=== PATIENT | male | born 1950 | race Caucasian/White ===

== ENCOUNTER 2016-06-02 18:29 | Emergency (ER) | payer MEDICARE ==
--- NOTE | 2016-06-02 19:00 | ED ---
Abdominal Pain HPI <Kee Renae - Last Filed: 06/02/16 22:59> - General Source: patient, RN notes reviewed Mode of arrival: ambulatory Limitations: no limitations <Josefa Gallagher - Last Filed: 06/03/16 03:44> - General Chief Complaint: Abdominal Pain Stated Complaint: RT FLANK PAIN Time Seen by Provider: 06/02/16 18:43 - History of Present Illness Initial Comments: Patient is a 66-year-old male presents to the emergency room for evaluation of right flank and right lower quadrant pain. Patient states been having on and off pain for the past month. Patient states been getting worse and more constant throughout the day today. Patient states having 8 out of 10 constant throbbing/aching pain. Patient states the pain is worse with movement. Patient states the pain is not any worse after eating foods or spicy foods. Patient denies any past surgical history. Patient states she hasn't seen a primary care provider in 5 years. Patient states he's not on any medications. Patient denies any significant past medical history. Patient denies any chest pain currently. Patient denies any shortness of breath. Patient denies any pain or burning during urination, trouble urinating or blood in urine. Patient states he does have a history of kidney stones. Patient denies fevers or chills. Patient denies nausea or vomiting. Patient denies headache or dizziness. (Josefa Gallagher) - Related Data Previous Rx's Medication Instructions Recorded HYDROcodone/APAP 5-325MG [[place] 1 tab PO Q6HR PRN #12 tab 06/02/16 5-325] Ibuprofen [Motrin] 800 mg PO Q6HR PRN #20 tab 06/02/16 Ondansetron Odt [Zofran Odt] 4 mg PO Q8HR PRN #12 tab 06/02/16 Tamsulosin HCl [Flomax] 0.4 mg PO DAILY #10 cap.er.24h 06/02/16 Allergies Allergy/AdvReac Type Severity Reaction Status Date / Time No Known Allergies Allergy Verified 06/02/16 19:06 Review of Systems ROS Other: All systems not noted in ROS Statement are negative. <Kee Renae - Last Filed: 06/02/16 22:59> ROS Other: All systems not noted in ROS Statement are negative. <Josefa Gallagher - Last Filed: 06/03/16 03:44> ROS Statement: Those systems with pertinent positive or pertinent negative responses have been documented in the HPI. Past Medical History Past Medical History: No Reported History History of Any Multi-Drug Resistant Organisms: None Reported Past Surgical History: Orthopedic Surgery Past Psychological History: No Psychological Hx Reported Smoking Status: Never smoker Past Alcohol Use History: None Reported Past Drug Use History: None Reported <Josefa Gallagher - Last Filed: 06/03/16 03:44> General Exam <Kee Renae - Last Filed: 06/02/16 22:59> Limitations: no limitations General appearance: alert, in no apparent distress Head exam: Present: atraumatic, normocephalic, normal inspection Eye exam: Present: normal appearance ENT exam: Present: normal exam Neck exam: Present: normal inspection Respiratory exam: Present: normal lung sounds bilaterally. Absent: respiratory distress Cardiovascular Exam: Present: regular rate, normal rhythm, normal heart sounds GI/Abdominal exam: Present: soft, normal bowel sounds. Absent: distended, tenderness, guarding, rebound, rigid Extremities exam: Present: normal inspection Back exam: Present: normal inspection Neurological exam: Present: alert, oriented X3, CN II-XII intact, normal gait Psychiatric exam: Present: normal affect, normal mood Skin exam: Present: warm, dry, intact, normal color. Absent: rash <Josefa Gallagher - Last Filed: 06/03/16 03:44> - General Exam Comments Initial Comments: Sitting in exam room in no acute distress. (Josefa Gallagher) Medical Decision Making - Lab Data Result diagrams: 06/02/16 19:53 06/02/16 19:53 <Kee Renae - Last Filed: 06/02/16 22:59> - Lab Data Result diagrams: 06/02/16 19:53 06/02/16 19:53 - Radiology Data Radiology results: report reviewed, image reviewed <Josefa Gallagher - Last Filed: 06/03/16 03:44> - Medical Decision Making Medical decision making. I reviewed the patient's labs SHOW normal limits. His pain is on again off again for a day. He has had kidney stones before. We did discuss renal colic. The patient also has been advised follow-up with a family physician for his prostate. The patient will be placed on Flomax and and medicine for nausea and analgesic for pain. I did discuss with him the findings of the CAT scan showing some mild inflammation of the mesentery. Nonspecific. Deep palpation of the abdomen is negative. Negative Bates sign. Deep palpation of the right flank along the rib cage does elicit discomfort. Possibility of mild costochondritis and/or early shingles was discussed. They will watch for signs of rash. Advised return emergency room as needed. Dr. Renae (Kee Renae) Patient is a 66-year-old male presented emergency room for evaluation of right flank and right upper quadrant pain. Labs show no significant findings. Case discussed with Dr. Renae who also evaluated patient. Patient will be treated for renal colic. Advised patient to follow-up with his primary care provider and urologist. Return parameters discussed. (Josefa Gallagher) - Lab Data Lab Results 06/02/16 06/02/16 06/02/16 Range/Units 19:53 19:53 19:53 WBC 8.1 (3.8-10.6) k/uL RBC 4.87 (4.30-5.90) m/uL Hgb 15.7 (13.0-17.5) gm/dL Hct 45.4 (39.0-53.0) % MCV 93.2 (80.0-100.0) fL MCH 32.2 (25.0-35.0) pg MCHC 34.6 (31.0-37.0) g/dL RDW 13.2 (11.5-15.5) % Plt Count 185 (150-450) k/uL Neutrophils % 70 % Lymphocytes % 20 % Monocytes % 5 % Eosinophils % 3 % Basophils % 1 % Neutrophils # 5.6 (1.3-7.7) k/uL Lymphocytes # 1.6 (1.0-4.8) k/uL Monocytes # 0.4 (0-1.0) k/uL Eosinophils # 0.2 (0-0.7) k/uL Basophils # 0.1 (0-0.2) k/uL PT (9.0-12.0) sec INR (<1.1) APTT (22.0-30.0) sec Sodium 139 (137-145) mmol/L Potassium 4.1 (3.5-5.1) mmol/L Chloride 104 (98-107) mmol/L Carbon Dioxide 24 (22-30) mmol/L Anion Gap 11 mmol/L BUN 12 (9-20) mg/dL Creatinine 1.05 (0.66-1.25) mg/dL Est GFR (MDRD) Af Amer >60 (>60 ml/min/1.73 sqM) Est GFR (MDRD) Non-Af >60 (>60 ml/min/1.73 sqM) Glucose 93 (74-99) mg/dL Calcium 9.0 (8.4-10.2) mg/dL Magnesium 1.9 (1.6-2.3) mg/dL Total Bilirubin 0.8 (0.2-1.3) mg/dL AST 25 (17-59) U/L ALT 47 (21-72) U/L Alkaline Phosphatase 67 (38-126) U/L Total Creatine Kinase 82 (55-170) U/L CK-MB (CK-2) 0.9 (0.0-2.4) ng/mL CK-MB (CK-2) Rel Index 1.1 Troponin I <0.012 (0.000-0.034) ng/mL NT-Pro-B Natriuret Pep pg/mL Total Protein 7.1 (6.3-8.2) g/dL Albumin 4.3 (3.5-5.0) g/dL Amylase 70 (30-110) U/L Lipase 97 (23-300) U/L Urine Color Urine Appearance (Clear) Urine pH (5.0-8.0) Ur Specific [place] (1.001-1.035) Urine Protein (Negative) Urine Glucose (UA) (Negative) Urine Ketones (Negative) Urine Blood (Negative) Urine Nitrate (Negative) Urine Bilirubin (Negative) Urine Urobilinogen (<2.0) mg/dL Ur Leukocyte Esterase (Negative) 06/02/16 06/02/16 06/02/16 Range/Units 19:53 19:53 20:20 WBC (3.8-10.6) k/uL RBC (4.30-5.90) m/uL Hgb (13.0-17.5) gm/dL Hct (39.0-53.0) % MCV (80.0-100.0) fL MCH (25.0-35.0) pg MCHC (31.0-37.0) g/dL RDW (11.5-15.5) % Plt Count (150-450) k/uL Neutrophils % % Lymphocytes % % Monocytes % % Eosinophils % % Basophils % % Neutrophils # (1.3-7.7) k/uL Lymphocytes # (1.0-4.8) k/uL Monocytes # (0-1.0) k/uL Eosinophils # (0-0.7) k/uL Basophils # (0-0.2) k/uL PT 10.7 (9.0-12.0) sec INR 1.1 (<1.1) APTT 24.5 (22.0-30.0) sec Sodium (137-145) mmol/L Potassium (3.5-5.1) mmol/L Chloride (98-107) mmol/L Carbon Dioxide (22-30) mmol/L Anion Gap mmol/L BUN (9-20) mg/dL Creatinine (0.66-1.25) mg/dL Est GFR (MDRD) Af Amer (>60 ml/min/1.73 sqM) Est GFR (MDRD) Non-Af (>60 ml/min/1.73 sqM) Glucose (74-99) mg/dL Calcium (8.4-10.2) mg/dL Magnesium (1.6-2.3) mg/dL Total Bilirubin (0.2-1.3) mg/dL AST (17-59) U/L ALT (21-72) U/L Alkaline Phosphatase (38-126) U/L Total Creatine Kinase (55-170) U/L CK-MB (CK-2) (0.0-2.4) ng/mL CK-MB (CK-2) Rel Index Troponin I (0.000-0.034) ng/mL NT-Pro-B Natriuret Pep 49 pg/mL Total Protein (6.3-8.2) g/dL Albumin (3.5-5.0) g/dL Amylase (30-110) U/L Lipase (23-300) U/L Urine Color Yellow Urine Appearance Clear (Clear) Urine pH 6.0 (5.0-8.0) Ur Specific [place] 1.013 (1.001-1.035) Urine Protein Negative (Negative) Urine Glucose (UA) Negative (Negative) Urine Ketones Negative (Negative) Urine Blood Negative (Negative) Urine Nitrate Negative (Negative) Urine Bilirubin Negative (Negative) Urine Urobilinogen <2.0 (<2.0) mg/dL Ur Leukocyte Esterase Negative (Negative) 06/02/16 23:08 Normal sinus rhythm, ventricular rate 76 bpm, WV interval 154 ms, QRS duration 84 ms, QT/QTC 378/425 ms, no ST elevations (Josefa Gallagher) Disposition <Kee Renae - Last Filed: 06/02/16 22:59> Time of Disposition: 23:01 <Josefa Gallagher - Last Filed: 06/03/16 03:44> Clinical Impression: Right flank pain Disposition: HOME SELF-CARE Condition: Good Instructions: Kidney Stones (ED), Flank Pain (ED) Additional Instructions: Take Flomax as directed. Take Zofran as needed for nausea. Take ibuprofen as needed for pain. Take [place] as needed for severe pain. Please follow up with urologist for further evaluation. If any new symptom arises or symptoms worsen , return to ER as soon as possible. Prescriptions: HYDROcodone/APAP 5-325MG [[place] 5-325] 1 tab PO Q6HR PRN #12 tab PRN Reason: Pain Ibuprofen [Motrin] 800 mg PO Q6HR PRN #20 tab PRN Reason: Pain Ondansetron Odt [Zofran Odt] 4 mg PO Q8HR PRN #12 tab PRN Reason: Nausea Tamsulosin HCl [Flomax] 0.4 mg PO DAILY #10 cap.er.24h Referrals: Eamon Johnston MD [STAFF PHYSICIAN] - 1-2 days
[2016-06-02 20:04] LABS: Basophils # (A) 0.1 k/uL (0-0.2); Basophils % (A) 1 %; CHCM 34.5; Eosinophils # (A) 0.2 k/uL (0-0.7); Eosinophils % (A) 3 %; HCT 45.4 % (39.0-53.0); HDW 2.54; HGB 15.7 gm/dL (13.0-17.5); Luc # (Auto) 0.16; Luc % (Auto) 2; Lymphocytes # (A) 1.6 k/uL (1.0-4.8); Lymphocytes % (A) 20 %; MCH 32.2 pg (25.0-35.0); MCHC 34.6 g/dL (31.0-37.0); MCV 93.2 fL (80.0-100.0); Mean Platelet Volume 7.5; Monocytes # (A) 0.4 k/uL (0-1.0); Monocytes % (A) 5 %; Neutrophils # (A) 5.6 k/uL (1.3-7.7); Neutrophils % (A) 70 %; RBC 4.87 m/uL (4.30-5.90); RDW 13.2 % (11.5-15.5); WBC 8.1 k/uL (3.8-10.6); WBC (Perox) 7.69
--- NOTE | 2016-06-02 20:08 | XR ---
EXAMINATION TYPE: XR chest 2V DATE OF EXAM: 06/02/2016 8:01 PM COMPARISON: NONE INDICATION: Chest pain TECHNIQUE: Single frontal view of the chest is obtained. FINDINGS: The heart size is normal. The pulmonary vasculature is normal. The lungs are clear. IMPRESSION: 1. No acute pulmonary process.
[2016-06-02 20:12] LABS: ALT 47 U/L (21-72); AST 25 U/L (17-59); Alkaline Phosphatase 67 U/L (38-126); Amylase 70 U/L (30-110); Anion Gap 11 mmol/L; Blood Urea Nitrogen 12 mg/dL (9-20); Carbon Dioxide 24 mmol/L (22-30); Chloride 104 mmol/L (98-107); Glucose 93 mg/dL (74-99); INR 1.1 (<1.1); Magnesium 1.9 mg/dL (1.6-2.3); Non-African American GFR(MDRD) >60 (>60 ml/min/1.73 sqM); Partial Thromboplastin Time 24.5 sec (22.0-30.0); Potassium 4.1 mmol/L (3.5-5.1); Prothrombin Time 10.7 sec (9.0-12.0); Sodium 139 mmol/L (137-145); Total Bilirubin 0.8 mg/dL (0.2-1.3); Total Protein 7.1 g/dL (6.3-8.2)
--- NOTE | 2016-06-02 20:16 | XR ---
EXAMINATION TYPE: XR KUB DATE OF EXAM: 06/02/2016 8:01 PM COMPARISON: NONE INDICATION: Pain TECHNIQUE: Single view abdomen FINDINGS: There is a normal bowel gas pattern. Psoas margins are normal. No organomegaly is present. No suspicious calcifications are identified. IMPRESSION: 1. Unremarkable Abdomen
[2016-06-02 20:23] LABS: Creatine Kinase 82 U/L (55-170)
[2016-06-02 20:28] LABS: Appearance,Urine Clear (Clear); Bilirubin,Urine Negative (Negative); Glucose,Urine (UA) Negative (Negative); Ketones,Urine Negative (Negative); Leukocyte Esterase,Urine Negative (Negative); Nitrite,Urine Negative (Negative); Protein,Urine Negative (Negative); Specific Gravity,Urine 1.013 (1.001-1.035); UA Billing (MACRO vs. MICRO) CHEM; Urobilinogen,Urine <2.0 mg/dL (<2.0)
[2016-06-02] MEDS ORDERED: HYDROmorphone 1 MG/ML 1 ML SYRINGE IVP STA (20:29)
[2016-06-02 20:36] LABS: Creatine Kinase MB 0.9 ng/mL (0.0-2.4); Troponin I <0.012 ng/mL (0.000-0.034)
--- NOTE | 2016-06-02 21:42 | CT ---
EXAMINATION TYPE: CT abdomen pelvis wo con DATE OF EXAM: 06/02/2016 9:33 PM COMPARISON: NONE INDICATION: Right Upper Quadrant pain DLP: 1769 mGycm, Automated exposure control for dose reduction was used. CONTRAST: None Study performed without Oral Contrast TECHNIQUE: Axial images were obtained from above the diaphragm to the pubic rami in the axial plane a t 5 mm thick sections. Reconstructed images are reviewed on the computer in the coronal plane. FINDINGS: Limited CT sections are obtained the lung bases. The lung bases are clear. Some coronary artery keven cification is present. CT ABDOMEN: Liver: Normal Spleen: Normal Pancreas: Some fatty infiltration of the pancreas is present. Anterior to the pancreas there is some extremely subtle inflammatory-type increased density within th e mesentery. No enlarged adenopathy is evident. No suspicious masses evident. This is not direct comm unication with the pancreas. Mild inflammatory changes not entirely excluded this level. This area is nonspecific.This is the contralateral side patient's reported pain. Adrenal glands: The adrenal glands are normal. Gallbladder: Normal Kidneys: No masses are evident. No hydronephrosis is present. There is a 2.0 cm cyst measuring 4 Ho [place]field units on the posterior lateral right mid kidney. No renal stones are identified. Aorta: Vascular calcification is within the aorta. Inferior vena cava: Normal. CT PELVIS: Loops of bowel within the abdomen and pelvis are normal. Study is performed without oral contrast limiting the evaluation. Appendix: Not identified Urinary bladder: Normal. Genitourinary structures: Prostate contains calcification. Osseous structures: No suspicious lytic or sclerotic lesions. IMPRESSIONS: 1. No suspicious acute changes. Minimal increased density is within the mesentery anterior to the ta il of pancreas which is nonspecific. Some subtle inflammatory change could be considered.
[2016-06-02] MEDS ORDERED: ONDANSETRON 4 MG/2 ML VIAL IVP STA (22:40)
[2016-06-02] MEDS ORDERED: KETOROLAC 30 MG/ML 1 ML VIAL IVP STA (23:06)
[2016-06-02 23:33] VITALS: BP 157/87; PULSE 63; RESP 20; TEMP 97.8
== END 2016-06-02 23:35 | disposition home or self-care (01) ==
LOC: EC 18:29
DX: R10.9 Unspecified abdominal pain (principal); R10.11 Right upper quadrant pain; Z79.899 Other long term (current) drug therapy; Z87.442 Personal history of urinary calculi
CPT/HCPCS: 36415; 93005; 83880; 80053; 82150; 82550; 82553; 83690; 83735; 84484; 85025; 85610; 85730; 81003; 71020; 74000; 74176; 99284; 96374; 96375; J2405; J1885; J1170

== ENCOUNTER 2017-10-24 07:36 | Emergency (ER) | payer MEDICARE ==
[2017-10-24] MEDS ORDERED: METOCLOPRAMIDE 5 MG/ML 2 ML VIAL IVP STA (08:07)
[2017-10-24] MEDS ORDERED: MECLIZINE 12.5 MG TAB PO STA (08:07)
--- NOTE | 2017-10-24 08:09 | ED ---
General Adult HPI - General Chief complaint: Dizziness Stated complaint: Dizziness Time Seen by Provider: 10/24/17 07:44 Source: patient, RN notes reviewed Mode of arrival: ambulatory Limitations: no limitations - History of Present Illness Initial comments: Patient is a pleasant 67-year-old male presenting to the emergency Department with complaints of dizziness. Symptoms have been present for just over 48 hours. Patient has spinning type sensation. Symptoms have been waxing and waning. At times symptoms are positional. No headache. No confusion. No weakness. No speech problems. No loss of sensation. No history of similar symptoms previously. - Related Data Home Medications Medication Instructions Recorded Confirmed Furosemide [Lasix] 40 mg PO DAILY 10/24/17 10/24/17 Losartan Potassium 100 mg PO DAILY 10/24/17 10/24/17 Potassium Chloride [Klor-Con 10] 10 meq PO DAILY 10/24/17 10/24/17 Allergies Allergy/AdvReac Type Severity Reaction Status Date / Time iodine Allergy Rash/Hives Verified 10/24/17 08:15 Review of Systems ROS Statement: Those systems with pertinent positive or pertinent negative responses have been documented in the HPI. ROS Other: All systems not noted in ROS Statement are negative. Constitutional: Denies: fever Eyes: Denies: eye pain ENT: Denies: ear pain Respiratory: Denies: cough Cardiovascular: Denies: chest pain Endocrine: Denies: fatigue Gastrointestinal: Reports: nausea. Denies: abdominal pain Genitourinary: Denies: dysuria Musculoskeletal: Denies: back pain Skin: Denies: rash Neurological: Reports: vertigo. Denies: headache, weakness, numbness, paresthesias, confusion Past Medical History Past Medical History: Hypertension History of Any Multi-Drug Resistant Organisms: None Reported Past Surgical History: Orthopedic Surgery Past Psychological History: No Psychological Hx Reported Smoking Status: Never smoker Past Alcohol Use History: None Reported Past Drug Use History: None Reported General Exam Limitations: no limitations General appearance: alert, in no apparent distress Head exam: Present: atraumatic Eye exam: Present: normal appearance, PERRL, EOMI. Absent: nystagmus ENT exam: Present: normal oropharynx Neck exam: Present: normal inspection Respiratory exam: Present: normal lung sounds bilaterally Cardiovascular Exam: Present: regular rate, normal rhythm GI/Abdominal exam: Present: soft. Absent: tenderness Extremities exam: Present: normal inspection Neurological exam: Present: alert, oriented X3, CN II-XII intact. Absent: motor sensory deficit Expanded Neurological exam: Present: protecting the airway Speech: Present: fluid speech Cranial nerves: EOM's Intact: Normal, Facial Sensation: Normal Cerebellar function: Finger to Nose: Normal Sensory exam: Upper Extremity Light Touch: Normal, Lower Extremity Light Touch: Normal Motor strength exam: RUE: 5, LUE: 5, RLE: 5, LLE: 5 Eye Response: (4) open spontaneously Motor Response: (6) obeys commands Verbal Response: (5) oriented Psychiatric exam: Present: normal affect, normal mood Skin exam: Present: normal color Course Vital Signs 10/24/17 10/24/17 10/24/17 07:36 09:21 12:08 Temperature 98.6 F Pulse Rate 75 69 70 Pulse Rate [ Sitting] Pulse Rate [ Standing] Pulse Rate [ Supine] Respiratory 18 17 16 Rate Blood Pressure 160/86 154/86 139/79 Blood Pressure [Sitting] Blood Pressure [Standing] Blood Pressure [Supine] O2 Sat by Pulse 97 98 100 Oximetry 10/24/17 10/24/17 12:09 13:34 Temperature 98.4 F Pulse Rate 67 Pulse Rate [ 68 Sitting] Pulse Rate [ 72 Standing] Pulse Rate [ 73 Supine] Respiratory 18 Rate Blood Pressure 136/66 Blood Pressure 167/79 [Sitting] Blood Pressure 139/76 [Standing] Blood Pressure 141/70 [Supine] O2 Sat by Pulse 96 Oximetry - Reevaluation(s) Reevaluation #1: 10/24/17 11:22 Patient reevaluated and somewhat improved however still having intermittent symptoms. EKG Findings - EKG Comments: EKG Findings:: Normal sinus rhythm 67. AR 162. QRS 76. QT 396. QTc 418. Normal axis. Normal QRS. No acute ST change. Medical Decision Making - Medical Decision Making Patient reevaluated and feels much better following fluid bolus. Patient able get up and walk around without difficulty. Patient requesting discharge home. Patient and family updated on results and need for follow-up. - Lab Data Result diagrams: 10/24/17 09:03 10/24/17 09:03 Lab Results 10/24/17 10/24/17 Range/Units 09:03 09:03 WBC 6.0 (3.8-10.6) k/uL RBC 5.04 (4.30-5.90) m/uL Hgb 15.5 (13.0-17.5) gm/dL Hct 46.9 (39.0-53.0) % MCV 93.1 (80.0-100.0) fL MCH 30.8 (25.0-35.0) pg MCHC 33.1 (31.0-37.0) g/dL RDW 14.1 (11.5-15.5) % Plt Count 212 (150-450) k/uL Neutrophils % 70 % Lymphocytes % 19 % Monocytes % 6 % Eosinophils % 3 % Basophils % 1 % Neutrophils # 4.2 (1.3-7.7) k/uL Lymphocytes # 1.1 (1.0-4.8) k/uL Monocytes # 0.3 (0-1.0) k/uL Eosinophils # 0.2 (0-0.7) k/uL Basophils # 0.0 (0-0.2) k/uL Sodium 140 (137-145) mmol/L Potassium 4.9 (3.5-5.1) mmol/L Chloride 107 (98-107) mmol/L Carbon Dioxide 22 (22-30) mmol/L Anion Gap 11 mmol/L BUN 29 H (9-20) mg/dL Creatinine 1.07 (0.66-1.25) mg/dL Est GFR (CKD-EPI)AfAm 83 (>60 ml/min/1.73 sqM) Est GFR (CKD-EPI)NonAf 72 (>60 ml/min/1.73 sqM) Glucose 114 H (74-99) mg/dL Calcium 9.4 (8.4-10.2) mg/dL Total Bilirubin 0.4 (0.2-1.3) mg/dL AST 21 (17-59) U/L ALT 39 (21-72) U/L Alkaline Phosphatase 67 (38-126) U/L Total Protein 7.0 (6.3-8.2) g/dL Albumin 4.4 (3.5-5.0) g/dL - Radiology Data Radiology results: image reviewed (Computed tomography scan of the brain shows no acute process) Disposition Clinical Impression: Orthostatic hypotension, Vertigo Disposition: HOME SELF-CARE Condition: Stable Instructions: Dizziness (ED) Additional Instructions: [id number] Antivert as needed. Please return for increased dizziness, unable to walk, off balance, confusion or weakness, worsening symptoms or other concerns Is patient prescribed a controlled substance at d/c from ED?: No Referrals: Alice Shelton MD [Primary Care Provider] - 1-2 days Cookie Barros MD [STAFF PHYSICIAN] - 1-2 days Time of Disposition: 14:13
[2017-10-24 09:21] LABS: Basophils % (A) 1 %; Eosinophils # (A) 0.2 k/uL (0-0.7); Eosinophils % (A) 3 %; HCT 46.9 % (39.0-53.0); HGB 15.5 gm/dL (13.0-17.5); Lymphocytes # (A) 1.1 k/uL (1.0-4.8); Lymphocytes % (A) 19 %; MCH 30.8 pg (25.0-35.0); MCHC 33.1 g/dL (31.0-37.0); MCV 93.1 fL (80.0-100.0); Monocytes # (A) 0.3 k/uL (0-1.0); Monocytes % (A) 6 %; Neutrophils # (A) 4.2 k/uL (1.3-7.7); Neutrophils % (A) 70 %; Platelet Count 212 k/uL (150-450); RBC 5.04 m/uL (4.30-5.90); RDW 14.1 % (11.5-15.5)
[2017-10-24 09:31] LABS: Albumin 4.4 g/dL (3.5-5.0); Calcium 9.4 mg/dL (8.4-10.2); Potassium 4.9 mmol/L (3.5-5.1); Total Bilirubin 0.4 mg/dL (0.2-1.3)
--- NOTE | 2017-10-24 10:31 | CT ---
EXAMINATION TYPE: CT brain wo con DATE OF EXAM: 10/24/2017 COMPARISON: None HISTORY: Severe dizziness CT DLP: 1121 mGycm Automated exposure control for dose reduction was used. TECHNIQUE: CT scan of the head is performed without contrast. FINDINGS: There is no acute intracranial hemorrhage or midline shift identified. There is symmetric ventricular and sulcal prominence consistent with mild age-related cerebral atrophy. No suspicious extra axial fluid collection is seen. Osseous calvarium is intact. There is a mucosal retention cyst partially visualized within the posterior right maxillary sinus measuring 1.0 cm. Remaining paranasa l sinuses are well aerated. Mastoid air cells are also well aerated. Atherosclerosis is seen of the i ntracranial vasculature. The globes are intact. IMPRESSION: No acute intracranial process.
[2017-10-24] MEDS ORDERED: SCOPOLAMINE 1.5MG/72HR PATCH TRANSDERM STA (11:20)
[2017-10-24] MEDS ORDERED: DIAZEPAM 5 MG/ML 2 ML INJ IVP STA (11:20)
[2017-10-24] MEDS ORDERED: SODIUM CHLORIDE 0.9% 1,000 ML IV STA (12:09)
[2017-10-24 13:35] VITALS: RESP 18; TEMP 98.4
[2017-10-24 14:31] VITALS: BP 173/74; PULSE 71
== END 2017-10-24 14:31 | disposition home or self-care (01) ==
LOC: EC 07:36
DX: I95.1 Orthostatic hypotension (principal); I10 Essential (primary) hypertension; Z79.899 Other long term (current) drug therapy; Z91.048 Other nonmedicinal substance allergy status
CPT/HCPCS: 36415; 93005; 80053; 85025; 70450; 99284; 96374; 96375; 96361; J2765; J3360

== ENCOUNTER 2020-11-21 13:30 | Inpatient (IN) | payer MEDICARE ==
--- NOTE | 2020-11-21 14:00 | ED ---
General Adult HPI - General Chief complaint: Shortness of Breath Stated complaint: abd pain Time Seen by Provider: 11/21/20 13:59 Source: patient Mode of arrival: ambulatory Limitations: no limitations - History of Present Illness Initial comments: Patient presents to the ED with his son-in-law for evaluation. Patient states that he is concerned that he may have Covid. Patient states that for the past 9 days, he has had symptoms of a mild headache, a mild cough, mild dyspnea, intermittent crampy abdominal pain and nausea at times. Patient denies having any abdominal pain, headache or any pain at all currently. Patient states that he did receive the [employer] Covid vaccine well over 2 weeks ago. Patient denies any known sick contact or Covid exposure. Patient denies fever or chills, trauma or injury, sudden onset of headache, LOC, neck pain or stiffness, focal numbness/weakness/neuro deficit, visual changes, speech difficulty, chest pain or pressure, hemoptysis, palpitations, dizziness, vomiting or diarrhea, constipation, bloody or melanotic stool, dysuria or urinary symptoms, leg or calf swelling or pain, or any other symptoms or complaints. - Related Data Home Medications Medication Instructions Recorded Confirmed Furosemide [Lasix] 40 mg PO DAILY PRN 10/24/17 11/21/20 Potassium Chloride [Klor-Con 10] 10 meq PO DAILY PRN 10/24/17 11/21/20 metOLazone [Zaroxolyn] 5 mg PO DAILY PRN 11/21/20 11/21/20 Allergies Allergy/AdvReac Type Severity Reaction Status Date / Time iodine Allergy Rash/Hives Verified 11/21/20 15:54 Review of Systems ROS Statement: Those systems with pertinent positive or pertinent negative responses have been documented in the HPI. ROS Other: All systems not noted in ROS Statement are negative. Past Medical History Past Medical History: Hypertension History of Any Multi-Drug Resistant Organisms: None Reported Past Surgical History: Orthopedic Surgery Past Psychological History: No Psychological Hx Reported Smoking Status: Never smoker Past Alcohol Use History: None Reported Past Drug Use History: None Reported General Exam Limitations: no limitations General appearance: alert, in no apparent distress Head exam: Present: atraumatic, normocephalic Eye exam: Present: normal appearance, EOMI ENT exam: Present: normal oropharynx, mucous membranes moist Neck exam: Present: other (Trachea is in midline). Absent: tenderness, meningismus Respiratory exam: Present: normal lung sounds bilaterally. Absent: respiratory distress, wheezes, rales, rhonchi, stridor Cardiovascular Exam: Present: regular rate, normal rhythm, normal heart sounds, other (Normal radial pulses bilaterally) GI/Abdominal exam: Present: soft. Absent: distended, tenderness, guarding Extremities exam: Present: other (Negative Homans sign bilaterally). Absent: tenderness, pedal edema, calf tenderness Neurological exam: Present: alert, oriented X3, CN II-XII intact. Absent: motor sensory deficit Psychiatric exam: Present: normal affect, normal mood Skin exam: Present: warm, dry, intact, normal color Course Vital Signs 11/21/20 11/21/20 11/21/20 13:38 14:43 15:38 Temperature 97.6 F Pulse Rate 87 76 84 Respiratory 18 18 18 Rate Blood Pressure 144/98 130/82 147/95 O2 Sat by Pulse 93 L 92 L 93 L Oximetry 11/21/20 16:48 Temperature Pulse Rate Respiratory 18 Rate Blood Pressure O2 Sat by Pulse Oximetry - Reevaluation(s) Reevaluation #1: 11/21/20 17:19 Case, H&P, test results and ED management were discussed with Dr. Mireles. He accepts hospital admission. He has no further recommendations at this time. 11/21/20 17:22 Patient denies development of any new symptoms while in the ED. Patient remains alert and breathing comfortably. Patient and daughter are aware the patient's test results, and patient agrees with hospital admission at this time. EKG Findings - EKG Comments: EKG Findings:: Normal sinus rhythm, ventricular rate of 77 bpm, no ectopy, normal ID and QRS intervals, prolonged QTc interval of 520 ms, leftward axis, moderate voltage criteria for LVH, nonspecific ST abnormality Medical Decision Making - Medical Decision Making Patient's labs are pertinent for a low potassium level of 2.4. Patient's Covid test is negative. Patient has been repleted with oral and IV potassium in the ED. Will admit the patient to the hospital for potassium monitoring and cardiac monitoring. Dr. Mireles has accepted hospital admission. - Lab Data Result diagrams: 11/21/20 14:38 11/21/20 14:38 Lab Results 11/21/20 11/21/2021 Range/Units 14:38 14:38 14:38 WBC 8.2 (3.8-10.6) k/uL RBC 5.36 (4.30-5.90) m/uL Hgb 17.2 (13.0-17.5) gm/dL Hct 49.3 (39.0-53.0) % MCV 91.9 (80.0-100.0) fL MCH 32.1 (25.0-35.0) pg MCHC 35.0 (31.0-37.0) g/dL RDW 14.4 (11.5-15.5) % Plt Count 246 (150-450) k/uL MPV 7.9 Neutrophils % 69 % Lymphocytes % 20 % Monocytes % 6 % Eosinophils % 1 % Basophils % 1 % Neutrophils # 5.6 (1.3-7.7) k/uL Lymphocytes # 1.7 (1.0-4.8) k/uL Monocytes # 0.5 (0-1.0) k/uL Eosinophils # 0.1 (0-0.7) k/uL Basophils # 0.1 (0-0.2) k/uL Poikilocytosis Slight PT 10.4 (9.0-12.0) sec INR 1.0 (<1.2) APTT 24.6 (22.0-30.0) sec Sodium 129 L (137-145) mmol/L Potassium 2.4 L* (3.5-5.1) mmol/L Chloride 81 L (98-107) mmol/L Carbon Dioxide 34 H (22-30) mmol/L Anion Gap 14 mmol/L BUN 30 H (9-20) mg/dL Creatinine 1.35 H (0.66-1.25) mg/dL Est GFR (CKD-EPI)AfAm 61 (>60 ml/min/1.73 sqM) Est GFR (CKD-EPI)NonAf 52 (>60 ml/min/1.73 sqM) Glucose 143 H (74-99) mg/dL Calcium 9.3 (8.4-10.2) mg/dL Magnesium 2.0 (1.6-2.3) mg/dL Total Bilirubin 0.9 (0.2-1.3) mg/dL AST 35 (17-59) U/L ALT 33 (4-49) U/L Alkaline Phosphatase 88 (38-126) U/L Troponin I (0.000-0.034) ng/mL NT-Pro-B Natriuret Pep pg/mL Total Protein 7.2 (6.3-8.2) g/dL Albumin 4.3 (3.5-5.0) g/dL Lipase 271 (23-300) U/L Urine Color Urine Appearance (Clear) Urine pH (5.0-8.0) Ur Specific [place] (1.001-1.035) Urine Protein (Negative) Urine Glucose (UA) (Negative) Urine Ketones (Negative) Urine Blood (Negative) Urine Nitrite (Negative) Urine Bilirubin (Negative) Urine Urobilinogen (<2.0) mg/dL Ur Leukocyte Esterase (Negative) Coronavirus (PCR) (Not Detectd) 11/21/20 11/21/20 11/21/20 Range/Units 14:38 14:38 14:45 WBC (3.8-10.6) k/uL RBC (4.30-5.90) m/uL Hgb (13.0-17.5) gm/dL Hct (39.0-53.0) % MCV (80.0-100.0) fL MCH (25.0-35.0) pg MCHC (31.0-37.0) g/dL RDW (11.5-15.5) % Plt Count (150-450) k/uL MPV Neutrophils % % Lymphocytes % % Monocytes % % Eosinophils % % Basophils % % Neutrophils # (1.3-7.7) k/uL Lymphocytes # (1.0-4.8) k/uL Monocytes # (0-1.0) k/uL Eosinophils # (0-0.7) k/uL Basophils # (0-0.2) k/uL Poikilocytosis PT (9.0-12.0) sec INR (<1.2) APTT (22.0-30.0) sec Sodium (137-145) mmol/L Potassium (3.5-5.1) mmol/L Chloride (98-107) mmol/L Carbon Dioxide (22-30) mmol/L Anion Gap mmol/L BUN (9-20) mg/dL Creatinine (0.66-1.25) mg/dL Est GFR (CKD-EPI)AfAm (>60 ml/min/1.73 sqM) Est GFR (CKD-EPI)NonAf (>60 ml/min/1.73 sqM) Glucose (74-99) mg/dL Calcium (8.4-10.2) mg/dL Magnesium (1.6-2.3) mg/dL Total Bilirubin (0.2-1.3) mg/dL AST (17-59) U/L ALT (4-49) U/L Alkaline Phosphatase (38-126) U/L Troponin I 0.020 (0.000-0.034) ng/mL NT-Pro-B Natriuret Pep 49 pg/mL Total Protein (6.3-8.2) g/dL Albumin (3.5-5.0) g/dL Lipase (23-300) U/L Urine Color Urine Appearance (Clear) Urine pH (5.0-8.0) Ur Specific [place] (1.001-1.035) Urine Protein (Negative) Urine Glucose (UA) (Negative) Urine Ketones (Negative) Urine Blood (Negative) Urine Nitrite (Negative) Urine Bilirubin (Negative) Urine Urobilinogen (<2.0) mg/dL Ur Leukocyte Esterase (Negative) Coronavirus (PCR) Not Detected (Not Detectd) 11/21/20 Range/Units 15:28 WBC (3.8-10.6) k/uL RBC (4.30-5.90) m/uL Hgb (13.0-17.5) gm/dL Hct (39.0-53.0) % MCV (80.0-100.0) fL MCH (25.0-35.0) pg MCHC (31.0-37.0) g/dL RDW (11.5-15.5) % Plt Count (150-450) k/uL MPV Neutrophils % % Lymphocytes % % Monocytes % % Eosinophils % % Basophils % % Neutrophils # (1.3-7.7) k/uL Lymphocytes # (1.0-4.8) k/uL Monocytes # (0-1.0) k/uL Eosinophils # (0-0.7) k/uL Basophils # (0-0.2) k/uL Poikilocytosis PT (9.0-12.0) sec INR (<1.2) APTT (22.0-30.0) sec Sodium (137-145) mmol/L Potassium (3.5-5.1) mmol/L Chloride (98-107) mmol/L Carbon Dioxide (22-30) mmol/L Anion Gap mmol/L BUN (9-20) mg/dL Creatinine (0.66-1.25) mg/dL Est GFR (CKD-EPI)AfAm (>60 ml/min/1.73 sqM) Est GFR (CKD-EPI)NonAf (>60 ml/min/1.73 sqM) Glucose (74-99) mg/dL Calcium (8.4-10.2) mg/dL Magnesium (1.6-2.3) mg/dL Total Bilirubin (0.2-1.3) mg/dL AST (17-59) U/L ALT (4-49) U/L Alkaline Phosphatase (38-126) U/L Troponin I (0.000-0.034) ng/mL NT-Pro-B Natriuret Pep pg/mL Total Protein (6.3-8.2) g/dL Albumin (3.5-5.0) g/dL Lipase (23-300) U/L Urine Color Yellow Urine Appearance Clear (Clear) Urine pH 6.0 (5.0-8.0) Ur Specific [place] 1.015 (1.001-1.035) Urine Protein Negative (Negative) Urine Glucose (UA) Negative (Negative) Urine Ketones Negative (Negative) Urine Blood Negative (Negative) Urine Nitrite Negative (Negative) Urine Bilirubin Negative (Negative) Urine Urobilinogen <2.0 (<2.0) mg/dL Ur Leukocyte Esterase Negative (Negative) Coronavirus (PCR) (Not Detectd) - Radiology Data Radiology results: report reviewed (Chest x-ray: Interstitial prominence could reflect bronchitis or chronic asthma, no focal infiltrate seen) Disposition Clinical Impression: Hypokalemia, Headache, Dyspnea, Abdominal cramps Disposition: ADMITTED IP TO THIS HOSP Condition: Stable Is patient prescribed a controlled substance at d/c from ED?: No Referrals: Alice Shelton MD [Primary Care Provider] - 1-2 days Time of Disposition: 17:19
[2020-11-21 14:48] LABS: Basophils # (A) 0.1 k/uL (0-0.2); Basophils % (A) 1 %; Eosinophils # (A) 0.1 k/uL (0-0.7); Eosinophils % (A) 1 %; HCT 49.3 % (39.0-53.0); HGB 17.2 gm/dL (13.0-17.5); Lymphocytes # (A) 1.7 k/uL (1.0-4.8); Lymphocytes % (A) 20 %; MCH 32.1 pg (25.0-35.0); MCV 91.9 fL (80.0-100.0); Mean Platelet Volume 7.9; Monocytes # (A) 0.5 k/uL (0-1.0); Monocytes % (A) 6 %; Neutrophils # (A) 5.6 k/uL (1.3-7.7); Neutrophils % (A) 69 %; Platelet Count 246 k/uL (150-450); Poikilocytosis Slight; RBC 5.36 m/uL (4.30-5.90); RDW 14.4 % (11.5-15.5); WBC 8.2 k/uL (3.8-10.6)
[2020-11-21 14:57] LABS: Albumin 4.3 g/dL (3.5-5.0); Calcium 9.3 mg/dL (8.4-10.2); Total Bilirubin 0.9 mg/dL (0.2-1.3); Total Protein 7.2 g/dL (6.3-8.2)
[2020-11-21 15:00] LABS: Partial Thromboplastin Time 24.6 sec (22.0-30.0); Prothrombin Time 10.4 sec (9.0-12.0)
[2020-11-21 15:17] LABS: Potassium 2.4 mmol/L (3.5-5.1)
[2020-11-21] MEDS ORDERED: POTASSIUM CHLORIDE ER 20 MEQ TAB.ER PO STA (15:26)
[2020-11-21 15:35] LABS: Appearance,Urine Clear (Clear); Bilirubin,Urine Negative (Negative); Blood,Urine Negative (Negative); Color,Urine Yellow; Glucose,Urine (UA) Negative (Negative); Ketones,Urine Negative (Negative); Leukocyte Esterase,Urine Negative (Negative); Nitrite,Urine Negative (Negative); Protein,Urine Negative (Negative); Specific Gravity,Urine 1.015 (1.001-1.035); Urobilinogen,Urine <2.0 mg/dL (<2.0)
--- NOTE | 2020-11-21 15:36 | XR ---
EXAMINATION TYPE: XR chest 2V DATE OF EXAM: 11/21/2020 COMPARISON: 06/02/2016 HISTORY: 70-year-old male with cough, and shortness of breath and syncope TECHNIQUE: PA and lateral views FINDINGS: Heart normal size. Mild elongation/ectasia thoracic aorta. Interstitial prominence. Some strandy atel ectasis at the left base. No consolidation or pleural effusion. IMPRESSION: Interstitial prominence could reflect bronchitis or chronic asthma. No focal infiltrate seen.
[2020-11-21] MEDS: SODIUM CHLORIDE 0.9% 500 ML IV SCH (16:43)
[2020-11-21] MEDS: POTASSIUM CHLORIDE 10 MEQ in WATER FOR INJECTION 1 100ML.BAG IVPB SCH ×4 (16:43→21:59)
[2020-11-21] MEDS ORDERED: ACETAMINOPHEN TAB 500 MG TAB PO STA (18:22)
[2020-11-22] MEDS ORDERED: Potassium Replacement Protocol 1 EACH MISC MISCELLANE PRN ×3 (00:49→14:42)
[2020-11-22] MEDS: SODIUM CHLORIDE 0.9% 500 ML IV SCH ×6 (00:51→21:17)
[2020-11-22] MEDS: POTASSIUM CHLORIDE ER 20 MEQ TAB.ER PO SCH ×8 (00:55→22:35)
[2020-11-22 08:15] LABS: Basophils % (A) 0 %; Eosinophils # (A) 0.1 k/uL (0-0.7); Eosinophils % (A) 1 %; HCT 43.9 % (39.0-53.0); HGB 15.3 gm/dL (13.0-17.5); Lymphocytes # (A) 1.9 k/uL (1.0-4.8); Lymphocytes % (A) 22 %; MCHC 34.8 g/dL (31.0-37.0); MCV 91.9 fL (80.0-100.0); Mean Platelet Volume 7.1; Monocytes # (A) 0.4 k/uL (0-1.0); Monocytes % (A) 5 %; Neutrophils # (A) 6.1 k/uL (1.3-7.7); Neutrophils % (A) 69 %; Platelet Count 214 k/uL (150-450); RBC 4.77 m/uL (4.30-5.90); RDW 13.7 % (11.5-15.5); WBC 8.7 k/uL (3.8-10.6)
[2020-11-22 08:53] LABS: African American GFR (CKD) >90 (>60 ml/min/1.73 sqM); Anion Gap 6 mmol/L; Blood Urea Nitrogen 22 mg/dL (9-20); Calcium 8.7 mg/dL (8.4-10.2); Carbon Dioxide 33 mmol/L (22-30); Chloride 93 mmol/L (98-107); Glucose 115 mg/dL (74-99); Non-African American GFR(CKD) 79 (>60 ml/min/1.73 sqM); Potassium 3.1 mmol/L (3.5-5.1); Sodium 132 mmol/L (137-145)
[2020-11-22 11:37] VITALS: BMI 35.8
[2020-11-22 14:04] LABS: Magnesium 2.1 mg/dL (1.6-2.3); Potassium 3.1 mmol/L (3.5-5.1)
--- NOTE | 2020-11-22 17:47 | P.HPIM ---
History of Present Illness H&P Date: 11/21/20 Kaiden Avila, is a 70-year-old male, who presented to [facility] emergency room with a chief complaint of generalized fatigue and malaise without any specific complaint, he was worried he might have Covid He was evaluated in the emergency room vital examination on presentation reveal ed a temperature of 97.6 pulse 87 respiration 18 blood pressure 144/98 pulse ox 93% on room air Laboratory data revealed a white blood count of 8.2 hemoglobin 17.2 platelet count 246 sodium 129 potassium 2.4 chloride 81 CO2 34 BUN 30 creatinine 1.35 glucose level was 143 Testing in the emergency room revealed patient had a chest x-ray that revealed interstitial prominence reflective bronchitis or chronic asthma no focal infiltrate seen, EKG revealed normal sinus rhythm with nonspecific T wave ab normalities Patient was admitted to medical floor for further evaluation and treatment Past medical history is significant for bilateral lower extremity edema for which patient was maintained on Lasix 40 mg daily and Zaroxolyn 5 mg daily patient was also receiving potassium chloride 10 mEq once daily for he takes all 3 medications as needed On review of systems Patient was seen and examined on the medical floor, he is alert and oriented x 3 in no distress, he denies any complaints there is no fe sindi or chills no headache or dizziness no chest pain no shortness of breath no palpitation no cough no nausea or vomiting no abdominal pain no diarrhea no blood in the stools no burning with urination no frequency or urgency and no hematuria, there is no weakness or numbness in any of the extremities no change in vision speech or gait. Past Medical History Past Medical History: Hypertension History of Any Multi-Drug Resistant Organisms: None Reported Past Surgical History: Orthopedic Surgery Past Psychological History: No Psychological Hx Reported Smoking Status: Never smoker Past Alcohol Use History: None Reported Past Drug Use History: None Reported - Past Family History Mother History Unknown: Yes Medications and Allergies Home Medications Medication Instructions Recorded Confirmed Type Furosemide [Lasix] 40 mg PO DAILY PRN 10/24/17 11/21/20 History Potassium Chloride [Klor-Con 10] 10 meq PO DAILY PRN 10/24/17 11/21/20 History metOLazone [Zaroxolyn] 5 mg PO DAILY PRN 11/21/20 11/21/20 History Allergies Allergy/AdvReac Type Severity Reaction Status Date / Time iodine Allergy Rash/Hives Verified 11/21/20 15:54 Physical Exam Vitals: Vital Signs Temp Pulse Resp BP Pulse Ox 11/21/20 16:48 18 11/21/20 15:38 84 18 147/95 93 L 11/21/20 14:43 76 18 130/82 92 L 11/21/20 13:38 97.6 F 87 18 144/98 93 L Intake and Output 11/21/20 11/21/20 11/21/20 06:59 14:59 22:59 Other: Weight 124.284 kg In general patient is alert and oriented x 3 in no distress HEENT head normocephalic and atraumatic Neck is supple no JVD no goiter no lymphadenopathy no carotid bruit Chest examination is clear to auscultation no crackles no wheezing Cardiac exam reveals regular heart sounds S1 and S2 no gallops no murmurs Abdomen is soft nontender no organomegaly with normal bowel sounds Extremity exam reveals no edema no cyanosis or clubbing Neurological examination reveals no gross focal deficits Results CBC & Chem 7: 11/22/20 07:45 11/22/20 13:32 Labs: Abnormal Lab Results - Last 24 Hours (Table) 11/21/20 Range/Units 14:38 Sodium 129 L (137-145) mmol/L Potassium 2.4 L* (3.5-5.1) mmol/L Chloride 81 L (98-107) mmol/L Carbon Dioxide 34 H (22-30) mmol/L BUN 30 H (9-20) mg/dL Creatinine 1.35 H (0.66-1.25) mg/dL Glucose 143 H (74-99) mg/dL Assessment and Plan Plan: Dehydration with acute kidney injury Severe electrolyte imbalance with hypokalemia and hyponatremia History of bilateral lower extremity edema, at this time patient is off his diuretics At this time we are replacing potassium protocol Magnesium level is normal For DVT prophylaxis we will use Lovenox For GI prophylaxis Protonix Patient is improving with gentle hydration and potassium replacement Possible discharge to home tomorrow
--- NOTE | 2020-11-22 18:00 | P.PN ---
Subjective Progress Note Date: 11/22/20 Kaiden Avila, is a 70-year-old male, who presented to [facility] emergency room with a chief complaint of generalized fatigue and malaise without any specific complaint, he was worried he might have Covid He was evaluated in the emergency room vital examination on presentation revealed a temperature of 97.6 pulse 87 respiration 18 blood pressure 144/98 pulse ox 93% on room air Laboratory data revealed a white blood count of 8.2 hemoglobin 17.2 platelet count 246 sodium 129 potassium 2.4 chloride 81 CO2 34 BUN 30 creatinine 1.35 glucose level was 143 Testing in the emergency room revealed patient had a chest x-ray that revealed interstitial prominence reflective bronchitis or chronic asthma no focal infiltrate seen, EKG revealed normal sinus rhythm with nonspecific T wave abnormalities Patient was admitted to medical floor for further evaluation and treatment Past medical history is significant for bilateral lower extremity edema for which patient was maintained on Lasix 40 mg daily and Zaroxolyn 5 mg daily patient was also receiving potassium chloride 10 mEq once daily for he takes all 3 medications as needed On review of systems Patient was seen and examined on the medical floor, he is alert and oriented x 3 in no distress, he denies any complaints there is no fever or chills no headache or dizziness no chest pain no shortness of breath no palpitation no cough no nausea or vomiting no abdominal pain no diarrhea no blood in the stools no burning with urination no frequency or urgency and no hematuria, there is no weakness or numbness in any of the extremities no change in vision speech or gait. On 11/22/2020 Patient was seen and examined on the medical floor, he is alert and oriented x 3 in no distress, he denies any complaints there is no fever or chills no headache or dizziness no chest pain no shortness of breath no palpitation no cough no nausea or vomiting no abdominal pain no diarrhea no blood in the stools no burning with urination no frequency or urgency and no hematuria, there is no weakness or numbness in any of the extremities no change in vision speech or gait. Patient is feeling better his potassium is still low at 3.1 diuretics are still on hold continue to replace electrolytes possible discharge to home tomorrow Objective - Vital Signs Vital signs: Vital Signs Temp 97.8 F 11/22/20 15:53 Pulse 71 11/22/20 15:53 Resp 16 11/22/20 15:53 BP 122/71 11/22/20 15:53 Pulse Ox 95 11/22/20 15:53 Intake & Output 11/21/20 11/22/20 11/22/20 18:59 06:59 18:59 Intake Total 2980 Output Total 1130 Balance -1130 2980 Weight 124.284 kg 126.6 kg 126.6 kg Intake: Intake, IV Titration 1000 Amount Sodium Chloride 0.9% 500 1000 ml @ 100 mls/hr IV .Q5H COUNT INCLUDES THE [facility] Rx#:[id number] Oral 1980 Output: Urine 1130 Other: Voiding Method Urinal Toilet Urinal # Voids 4 # Bowel Movements 1 - Exam In general patient is alert and oriented x 3 in no distress HEENT head normocephalic and atraumatic Neck is supple no JVD no goiter no lymphadenopathy no carotid bruit Chest examination is clear to auscultation no crackles no wheezing Cardiac exam reveals regular heart sounds S1 and S2 no gallops no murmurs Abdomen is soft nontender no organomegaly with normal bowel sounds Extremity exam reveals no edema no cyanosis or clubbing Neurological examination reveals no gross focal deficits - Labs CBC & Chem 7: 11/22/20 07:45 11/22/20 17:06 Labs: Abnormal Lab Results - Last 24 Hours (Table) 11/22/20 11/22/20 11/22/20 Range/Units 00:12 07:45 13:32 Sodium 132 L (137-145) mmol/L Potassium 2.6 L* 3.1 L 3.1 L (3.5-5.1) mmol/L Chloride 93 L (98-107) mmol/L Carbon Dioxide 33 H (22-30) mmol/L BUN 22 H (9-20) mg/dL Glucose 115 H (74-99) mg/dL Assessment and Plan Plan: Dehydration with acute kidney injury Severe electrolyte imbalance with hypokalemia and hyponatremia History of bilateral lower extremity edema, at this time patient is off his diuretics At this time we are replacing potassium protocol Magnesium level is normal For DVT prophylaxis we will use Lovenox For GI prophylaxis Protonix Patient is improving with gentle hydration and potassium replacement Possible discharge to home tomorrow
[2020-11-22] MEDS: ENOXAPARIN 40 MG/0.4 ML SYRINGE SQ SCH (18:24)
[2020-11-23 03:12] VITALS: RESP 16
[2020-11-23] MEDS: SODIUM CHLORIDE 0.9% 500 ML IV SCH ×2 (04:38→08:21)
[2020-11-23 07:53] LABS: Basophils # (A) 0.1 k/uL (0-0.2); Basophils % (A) 1 %; Eosinophils # (A) 0.2 k/uL (0-0.7); Eosinophils % (A) 3 %; HGB 15.6 gm/dL (13.0-17.5); Lymphocytes % (A) 23 %; MCH 32.2 pg (25.0-35.0); MCHC 34.8 g/dL (31.0-37.0); MCV 92.7 fL (80.0-100.0); Mean Platelet Volume 6.9; Monocytes # (A) 0.4 k/uL (0-1.0); Monocytes % (A) 5 %; Neutrophils % (A) 68 %; Platelet Count 254 k/uL (150-450); RBC 4.85 m/uL (4.30-5.90); RDW 13.8 % (11.5-15.5); WBC 8.9 k/uL (3.8-10.6)
[2020-11-23 08:20] VITALS: BP 125/59; PULSE 69; TEMP 98
[2020-11-23] MEDS: ENOXAPARIN 40 MG/0.4 ML SYRINGE SQ SCH (08:21)
[2020-11-23 08:28] LABS: ALT 25 U/L (4-49); AST 25 U/L (17-59); African American GFR (CKD) >90 (>60 ml/min/1.73 sqM); Albumin 3.8 g/dL (3.5-5.0); Alkaline Phosphatase 91 U/L (38-126); Anion Gap 9 mmol/L; Blood Urea Nitrogen 16 mg/dL (9-20); Calcium 9.2 mg/dL (8.4-10.2); Carbon Dioxide 27 mmol/L (22-30); Chloride 98 mmol/L (98-107); Glucose 129 mg/dL (74-99); Non-African American GFR(CKD) 81 (>60 ml/min/1.73 sqM); Potassium 3.5 mmol/L (3.5-5.1); Sodium 134 mmol/L (137-145); Total Bilirubin 0.5 mg/dL (0.2-1.3); Total Protein 6.5 g/dL (6.3-8.2)
[2020-11-23] MEDS ORDERED: Potassium Replacement Protocol 1 EACH MISC MISCELLANE PRN (09:37)
[2020-11-23] MEDS: POTASSIUM CHLORIDE ER 20 MEQ TAB.ER PO SCH ×3 (09:49→10:56)
--- NOTE | 2020-11-23 10:49 | P.DS ---
Providers Date of admission: 11/21/20 17:19 Expected date of discharge: 11/23/20 Attending physician: Mehran Mireles Primary care physician: Alice Shelton [facility] Course: Diagnosis on discharge: Dehydration with acute kidney injury Severe electrolyte imbalance with hypokalemia and hyponatremia History of bilateral lower extremity edema, at this time patient is off his diuretics Hospital course: Kaiden Avila, is a 70-year-old male, who presented to [facility] emergency room with a chief complaint of generalized fatigue and malaise without any specific complaint, he was worried he might have Covid He was evaluated in the emergency room vital examination on presentation revealed a temperature of 97.6 pulse 87 respiration 18 blood pressure 144/98 pu lse ox 93% on room air Laboratory data revealed a white blood count of 8.2 hemoglobin 17.2 platelet count 246 sodium 129 potassium 2.4 chloride 81 CO2 34 BUN 30 creatinine 1.35 glucose level was 143 Testing in the emergency room revealed patient had a chest x-ray that revealed interstitial prominence reflective bronchitis or chronic asthma no focal infiltrate seen, EKG revealed normal sinus rhythm with nonspecific T wave abnormalities Patient was admitted to medical floor for further evaluation and treatment Past medical history is significant for bilateral lower extremity edema for which patient was maintained on Lasix 40 mg daily and Zaroxolyn 5 mg daily patient was also receiving potassium chloride 10 mEq once daily for he takes all 3 medications as needed On review of systems Patient was seen and examined on the medical floor, he is alert and oriented x 3 in no distress, he denies any complaints there is no fever or chills no headache or dizziness no chest pain no shortness of breath no palpitation no cough no nausea or vomiting no abdominal pain no diarrhea no blood in the stools no burning with urination no frequency or urgency and no hematuria, there is no weakness or numbness in any of the extremities no change in vision speech or gait. On 11/22/2020 Patient was seen and examined on the medical floor, he is alert and oriented x 3 in no distress, he denies any complaints there is no fever or chills no headache or dizziness no chest pain no shortness of breath no palpitation no cough no nausea or vomiting no abdominal pain no diarrhea no blood in the stools no burning with urination no frequency or urgency and no hematuria, there is no weakness or numbness in any of the extremities no change in vision speech or gait. Patient is feeling better his potassium is still low at 3.1 diuretics are still on hold continue to replace electrolytes possible discharge to home tomorrow On 11/23/2020 patient was seen and examined on the telemetry floor he is alert and oriented 3 in no distress there is no fever or chills no headache or dizziness no chest pain no shortness of breath no cough no nausea or vomiting no abdominal pain no diarrhea no blood in the stools no burning with urination no frequency or urgency and no hematuria. Kidney function is back to normal with BUN of 16 and a creatinine of 0.95 sodium is back to normal at 134 and potassium is back to normal at 3.59 patient will be discharged home. His medications were changed to Lasix 20 mg once daily and potassium chloride 20 mEq once daily patient was instructed to take medications regularly every morning and not to wait until having significant swelling in the legs and then taking a large amount of diuretic at that point. Patient Condition at Discharge: Stable Plan - Discharge Summary New Discharge Prescriptions: New Potassium Chloride ER [K-Dur 20] 20 meq PO DAILY 30 Days #30 tab Furosemide [Lasix] 20 mg PO DAILY 30 Days #30 tab Discontinued Furosemide [Lasix] 40 mg PO DAILY PRN PRN Reason: Edema Potassium Chloride [Klor-Con 10] 10 meq PO DAILY PRN PRN Reason: TAKE WITH LASIX metOLazone [Zaroxolyn] 5 mg PO DAILY PRN PRN Reason: TAKE WITH LASIX Discharge Medication List Furosemide [Lasix] 20 mg PO DAILY 30 Days #30 tab 11/23/20 [Rx] Potassium Chloride ER [K-Dur 20] 20 meq PO DAILY 30 Days #30 tab 11/23/20 [Rx] Follow up Appointment(s)/Referral(s): Alice Shelton MD [Primary Care Provider] - 1-2 days
== END 2020-11-23 11:41 | disposition home or self-care (01) | DRG 641 ==
LOC: EC 13:30 → 3SCARD 17:19
PROVIDERS: ADMIT Internal Medicine; ATTEND Internal Medicine
DX: E87.6 Hypokalemia (principal); N17.9 Acute kidney failure, unspecified; E87.1 Hypo-osmolality and hyponatremia; J40 Bronchitis, not specified as acute or chronic; J45.909 Unspecified asthma, uncomplicated; I10 Essential (primary) hypertension; E86.0 Dehydration; Z20.822 Contact with and (suspected) exposure to COVID-19; Z79.899 Other long term (current) drug therapy; Z88.8 Allergy status to other drugs, medicaments and biological substances; Z91.041 Radiographic dye allergy status
CPT/HCPCS: 36415; 71046; 80048; 80053; 81003; 83690; 83735; 83880; 84132; 84484; 85025; 85610; 85730; 87635; 93005; 99285

== ENCOUNTER → 2021-08-11 | Outpatient (CLI) | payer MEDICARE ==
--- NOTE | 2021-08-13 20:12 | US ---
EXAMINATION TYPE: US scrotum with doppler. DATE OF EXAM: 08/11/2021 COMPARISON: None CLINICAL HISTORY: 71-year-old male N50.811 RIGHT TESTICULAR PAIN, N43.2 HYDROCELE. Right-sided swelli ng x 2 months. Patient states he does not feel pain in the testicles. Slight pain within the groin ar ea. TECHNIQUE: Grayscale and color Doppler Duplex imaging performed of the scrotum. FINDINGS: EXAM MEASUREMENTS: TESTICLES: Right Testicle: 4.8 x 2.6 x 2.5 cm Left Testicle: 4.7 x 2.6 x 2.3 cm Doppler performed to assess for testicular vascularity; bilateral color flow and waveforms are seen. There is no evidence of testicular torsion. EPIDIDYMIS HEAD: Right Epididymis: Not well seen. Possible portion of the epididymis versus other nodular echogenic ti ssue seen lateral to right testicle such as a scrotal rayna or adenomatoid tumor measuring 1.2 x 0.8 x 0.6 cm Left Epididymis: 1.1 x 1.2 x 0.7 cm. There is an adjacent small 4 mm cyst. Presence of hydroceles: Yes, Right: 9.8 x 7.9 x 5.2 cm. Left: 4.6 x 2.8 x 1.0 cm. Presence of varicoceles: None seen. IMPRESSION: 1. No sonographic evidence for testicular torsion. 2. Large right hydrocele and moderate-sized left hydrocele. Clinically correlate. 3. Right epididymis not well seen. Probably due to the large hydrocele. There is a nodular area of ti ssue along the posterior scrotum adjacent to the testicle measuring 1.2 cm that could represent a par t of the epididymis. Other etiologies such as a scrotal rayna or adenomatoid tumor are also possible. Follow-up ultrasound in 3-6 months to reassess.
== END | disposition home or self-care (01) ==
LOC: RADUSWWP 16:16
PROVIDERS: ATTEND Family Medicine
DX: N43.3 Hydrocele, unspecified (principal)
CPT/HCPCS: 76870; 93975